=== PATIENT | male | born 1980 | race Asian ===

== ENCOUNTER 2019-10-11 13:54 | Emergency (ER) | payer OTHER ==
[~2019-10-11] VITALS: Ht 175.3 cm; Wt 86.4 kg
[2019-10-11] MEDS ORDERED: GUAI600T50 PO (14:08)
[2019-10-11] MEDS ORDERED: IBUP200C5 PO (14:08)
[2019-10-11] MEDS ORDERED: ACET-66 PO (14:08)
[2019-10-11 15:40] VITALS: BP 137/94
[2019-10-11] MEDS: BENZONATATE 100 MG CAPSULE PO ONE (16:09)
[2019-10-11] MEDS: BENZOCAINE/MENTHOL LOZENGE PO ONE (16:09)
[2019-10-11 16:42] LABS: INFLUENZA TYPE A NEGATIVE FOR TYPE A (NEGATIVE); INFLUENZA TYPE B NEGATIVE FOR TYPE B (NEGATIVE)
== END 2019-10-11 17:26 | disposition home or self-care (01) ==
LOC: EMS 13:56
DX: J06.9 Acute upper respiratory infection, unspecified (principal); F12.10 Cannabis abuse, uncomplicated; F17.210 Nicotine dependence, cigarettes, uncomplicated; Z79.899 Other long term (current) drug therapy; Z98.890 Other specified postprocedural states
CPT/HCPCS: 87804; 99406

== ENCOUNTER 2022-01-04 17:09 | Emergency (ER) | payer OTHER ==
[~2022-01-04] VITALS: Ht 167.6 cm; Wt 90.0 kg
[~2022-01-04 17:09] MED LIST: ACET-3385 PO; GUAI600T50 PO; IBUP200C5 PO
[2022-01-04] MEDS ORDERED: IBUPROFEN 600 MG TABLET PO ONE (19:00)
[2022-01-04] MEDS ORDERED: IBUP-2070 PO (20:00)
[2022-01-04 20:30] VITALS: BP 129/85
== END 2022-01-04 21:39 | disposition home or self-care (01) ==
LOC: EMS 17:09
DX: S20.212A Contusion of left front wall of thorax, initial encounter (principal); F17.210 Nicotine dependence, cigarettes, uncomplicated; F12.90 Cannabis use, unspecified, uncomplicated; F19.90 Other psychoactive substance use, unspecified, uncomplicated; W17.89XA Other fall from one level to another, initial encounter; Y93.89 Activity, other specified; Y92.89 Other specified places as the place of occurrence of the external cause; Y99.8 Other external cause status
CPT/HCPCS: 71045; 99283